=== PATIENT | female | born 1975 | race Caucasian/White ===

== ENCOUNTER 2016-08-17 16:29 | Emergency (ER) | payer MEDICAID, OTHER ==
[~2016-08-17] VITALS: Wt 82.0 kg
[2016-08-17] MEDS ORDERED: ACETAMINOPHEN 325 MG TAB PO STA (17:02)
[2016-08-17 17:32] LABS: BASOPHILS % 0.4 % (0.0-2.0); EOSINOPHILS # 0.2 10^3/ul (0.0-0.5); HEMATOCRIT 37.8 % (37.0-47.0); HEMOGLOBIN 13.1 g/dl (12.0-16.0); LYMPHOCYTES # 2.1 10^3/ul (0.8-2.9); LYMPHOCYTES % 27.5 % (15.0-51.0); MEAN CORPUSCULAR HEMOGLOBIN 30.4 pg (29.0-33.0); MEAN CORPUSCULAR HGB CONC 34.6 g/dl (32.0-37.0); MEAN CORPUSCULAR VOLUME 87.7 fl (82.0-101.0); MONOCYTE # 0.5 10^3/ul (0.3-0.9); MONOCYTES % 7.2 % (0.0-11.0); NEUTROPHIL # 4.7 10^3/ul (1.6-7.5); NEUTROPHILS % 61.9 % (39.0-77.0); PLATELET COUNT 248 10^3/UL (140-440); RED BLOOD COUNT 4.31 10^6/ul (4.20-5.40); RED CELL DISTRIBUTION WIDTH 12.9 % (11.5-14.5); UNCORRECTED WBC 7.6 10^3/ul (4.8-10.8); WHITE BLOOD COUNT 7.6 10^3/ul (4.8-10.8)
[2016-08-17 17:36] LABS: CONDITION 1
[2016-08-17 17:44] LABS: ADD UMIC YES; URINE BILIRUBIN (Dip) NEGATIVE (NEGATIVE); URINE BLOOD (Dip) 3+ (NEGATIVE); URINE COLOR LT. YELLOW (YELLOW); URINE GLUCOSE (Dip) NEGATIVE (NEGATIVE); URINE KETONES (Dip) NEGATIVE (NEGATIVE); URINE LEUKOCYTE ESTERASE (Dip) TRACE (NEGATIVE); URINE NITRITE (Dip) NEGATIVE (NEGATIVE); URINE TOTAL PROTEIN (Dip) NEGATIVE (NEGATIVE); URINE UROBILINOGEN (Dip) 0.2 E.U./dL (0.1-1.0)
--- NOTE | 2016-08-17 17:45 | RADRPT ---
PROCEDURE: OB Ultrasound. CLINICAL INDICATION: Positive test. Vaginal bleeding. TECHNIQUE: Ultrasound of the pelvis was performed with transabdominal and transvaginal sonography in the axial and sagittal planes. COMPARISON: No prior study is available for comparison. FINDINGS: There is no intrauterine gestational sac. The uterus is enlarged measuring 12.2 x 7.3 x 7.0 cm. Th e endometrium is thickened measuring 23.1 mm. There is no uterine mass or endometrial mass. The right ovary is normal with the right ovary measuring 3.7 x 2.8 x 2.6 cm. The left ovary is not visualized. Color Doppler and pulsed Doppler sonography demonstrate normal flow to the right ovary. There is no right ovarian enlargement or mass. There is no other pelvic mass or free fluid. IMPRESSION: 1. Enlarged uterus with thickened endometrium and no intrauterine gestational sac. If the patient has a positive test, ectopic gestation cannot be excluded. Clinical correlation and follow up ultrasound advised. 2. Left ovary not visualized. 3. Otherwise unremarkable study. RPTAT: QQ .Anival Kirby MD, Date Time Electronically viewed and signed by .Anival Kirby MD, on 08/17/2016 17:44 .R/
[2016-08-17 17:47] LABS: BACTERIA,URINE FEW; SQUAMOUS EPITHELIAL CELL,UR FEW
[2016-08-17] MEDS ORDERED: ONDANSETRON (ODT) 4 MG TAB ODT STA (18:07)
[2016-08-17] MEDS ORDERED: HYDROCODONE/APAP (10/325) TAB PO ONE (18:30)
[2016-08-17] MEDS ORDERED: morphine 10 MG INJ IM ONE (19:00)
[2016-08-17] MEDS ORDERED: HYDR-906 PO (19:04)
--- NOTE | 2016-08-17 19:09 | ERD ---
ER Documentation Chief Complaint Date/Time DATE: 08/17/16 TIME: 19:06 Chief Complaint vag bleed since last night with some clots this morning HPI This 32-year-old female complains of vaginal bleeding since yesterday. She is approximately 16 weeks by dates. She had some clots and possible tissue over the last day. She denies fevers, vomiting, and her pain is suprapubic and crampy. She is a G2 para 1. ROS All systems reviewed and are negative except as per history of present illness. Medications Home Meds Active Scripts Hydrocodone/Acetaminophen ([place] 5-325 Tablet) 1 Each Tablet, 1 TAB PO Q6H Y for PAIN, #14 TAB Prov:FARTUN REESE MD 08/17/16 Allergies Allergies: Coded Allergies: No Known Allergy (Verified Allergy, Unknown, 11/13/07) PMhx/Soc History of Surgery: No Anesthesia Reaction: No Hx Neurological Disorder: No Hx Respiratory Disorders: No Hx Cardiac Disorders: No Hx Psychiatric Problems: No Hx Miscellaneous Medical Probl: No Hx Alcohol Use: No Hx Substance Use: No Hx Tobacco Use: No Physical Exam Vitals Vital Signs Date Time Temp Pulse Resp B/P Pulse Ox O2 Delivery O2 Flow Rate FiO2 08/17/16 16:45 98.6 78 20 150/68 98 Physical Exam Const: [] Alert, [id number]. Head: Atraumatic Eyes: Normal Conjunctiva ENT: Normal External Ears, Nose and Mouth. Neck: Full range of motion..~ No meningismus. Resp: Clear to auscultation bilaterally Cardio: Regular rate and rhythm, no murmurs Abd: Soft, tender in the suprapubic area without tenderness at McBurney's point and no rebound. R, non distended. Normal bowel sounds Skin: No petechiae or rashes Back: No midline or flank tenderness Ext: No cyanosis, or edema Neur: Awake and alert Psych: Normal Mood and Affect Result Diagram: 08/17/16 2947 Results 24 hrs Laboratory Tests Test 08/17/16 17:15 Basophils # 0.010^3/ul Basophils % 0.4% Beta HCG, Quantitative 1120.0mIU/ml Blood Morphology Comment Eosinophils # 0.210^3/ul Eosinophils % 3.0% Hematocrit 37.8% Hemoglobin 13.1g/dl Lymphocytes # 2.110^3/ul Lymphocytes % 27.5% Mean Corpuscular Hemoglobin 30.4pg Mean Corpuscular Hemoglobin Concent 34.6g/dl Mean Corpuscular Volume 87.7fl Mean Platelet Volume 7.0fl Monocytes # 0.510^3/ul Monocytes % 7.2% Neutrophils # 4.710^3/ul Neutrophils % 61.9% Nucleated Red Blood Cells # 0.010^3/ul Nucleated Red Blood Cells % 0.0/100WBC Platelet Count 84421^3/UL Red Blood Count 4.3110^6/ul Red Cell Distribution Width 12.9% Urine Bacteria FEW Urine Bilirubin NEGATIVE Urine Clarity CLEAR Urine Color LT. YELLOW Urine Glucose NEGATIVE% Urine Hemoglobin 3+ Urine Ketones NEGATIVE Urine Leukocyte Esterase TRACE Urine Microscopic RBC 2-5/HPF Urine Microscopic WBC 0-2/HPF Urine Nitrite NEGATIVE Urine Specific [place] 1.015 Urine Squamous Epithelial Cells FEW Urine Total Protein NEGATIVE Urine Urobilinogen 0.2 E.U./dL Urine pH 7.5 White Blood Count 7.610^3/ul Current Medications Medications (Trade) Dose Ordered Sig/Taty Route PRN Reason Start Time Stop Time Status Last Admin Dose Admin Acetaminophen (Tylenol Tab) 650 mg ONCE STAT PO 08/17/16 17:02 08/17/16 17:04 DC 08/17/16 17:47 Acetaminophen/ Hydrocodone Bitart ([place] (10/325)) 1 tab ONCE ONCE PO 08/17/16 18:30 08/17/16 18:31 DC 08/17/16 18:18 Ondansetron HCl (Zofran Odt) 8 mg ONCE STAT ODT 08/17/16 18:07 08/17/16 18:08 DC 08/17/16 18:18 Morphine Sulfate (morphine) 4 mg ONCE ONCE IM 08/17/16 19:00 08/17/16 19:01 DC Procedures/MDM Urine shows no signs of infection. Patient is Rh+. Quantitative hCG is 1120. CBC is normal. Pelvic ultrasound shows enlarged uterus with a thickened endometrium with no appreciable intrauterine gestational sac. Patient gives a history of having had a previous ultrasound approximately 8 weeks with visual intrauterine . Patient has vaginal bleeding a first or second trimester with no visible intrauterine and hormone level of approximately 1000. Patient likely had a complete miscarriage but patient will be discharged with close follow-up. Patient is advised to follow-up with OB tomorrow for which she has an appointment. She should otherwise recommend to have hCG levels repeated in 48 hours. She should return sooner for fevers, vomiting, worsening pain or new worsening symptoms. Patient was given 10 mg [place] by mouth and additional morphine 4 oh grams IM and Zofran 8 mg by mouth for persistent pain after ultrasound. Signs and symptoms are not consistent with additional causes of abdominal pain such as appendicitis, acute abdomen. No signs of UTI. Departure Diagnosis: Primary Impression: Vaginal bleeding in patient at less than 20 weeks ges... Condition: Stable Patient Instructions: Bleeding During Early , Miscarriage (Incomplete) Additional Instructions: See OB as scheduled tomorrow. Ultrasound shows no appreciable and hormone levels are low for a number of weeks . Likely miscarriage. Recheck for fevers, new or worsening symptoms. FARTUN REESE MD Aug 17, 2016 19:09
[2016-08-17 19:28] VITALS: BP 117/69; PULSE 71; RESP 16; TEMP 97.6
== END 2016-08-17 19:30 | disposition home or self-care (01) ==
LOC: FTE 16:29
DX: O20.9 Hemorrhage in early pregnancy, unspecified (principal); Z3A.16 16 weeks gestation of pregnancy
CPT/HCPCS: 36415; 76805; 76817; 81001; 81003; 84702; 85025; 86900; 86901; 96372; J2270; Z7502; Z7610